=== PATIENT | female | born 1990 | race Caucasian/White ===

== ENCOUNTER 2023-11-02 20:53 | Emergency (ER) | payer OTHER, SELFPAY ==
[2023-11-02 21:01] VITALS: BP 148/93; PULSE 87; RESP 18; TEMP 37.9; O2SAT 99; BMI 31.6
--- NOTE | 2023-11-02 21:47 | ED_ITS ---
HPI - Dental/Oral General Chief complaint: Dental/Oral Stated complaint: Dental Pain, Neck Pain Time Seen by Provider: 11/02/23 21:43 Source: patient Mode of arrival: walk-in Limitations: no limitations History of Present Illness HPI Narrative: patient presents complaining of dental pain. Started this evening. complain of increase pressure. No problem swallowing. No throat pain. Does have pain left side of her neck. No fever, chills or nausea Related Data Home Medications Medication Instructions Recorded Confirmed No Known Home Medications 11/02/23 11/02/23 Allergies Allergy/AdvReac Type Severity Reaction Status Date / Time No Known Drug Allergies Allergy Verified 11/02/23 21:05 Review of Systems ROS Status of ROS 10 or more systems reviewed and unremark able except as noted in history and below [facility] Social History Smoking status: Current every day smoker Exam Constitutional Vital Signs, click to edit/add: Last Vital Signs Temp 100.2 F 11/02/23 21:01 Pulse 80 11/02/23 22:29 Resp 18 11/02/23 21:01 BP 119/94 H 11/02/23 22:29 Pulse Ox 99 11/02/23 22:29 O2 Del Method Room Air 11/02/23 21:01 Common normals: no apparent distress, average body habitus, oriented x3, no limitations, healthy appearing and alert [facility] Common normals: normocephalic and head/scalp atraumatic Other: dental abscess left upper molar. has swelling from tooth into the mouth. Has tenderness left anterior cervical chain but no obvious enlarged nodes. Respiratory Common normals: normal respiratory effort and no retractions Cardio Common normals: regular rate, regular rhythm, S1 normal heart sound and S2 normal heart sound Extremity Common normals: normal to inspection and full ROM Neuro Common normals: oriented x3, CN's II-XII intact bilaterally, moves all extremities and no focal motor deficits Psych Appearance: grossly normal Course Vital Signs Vital signs: Vital Signs Temperature 100.2 F 11/02/23 21:01 Pulse Rate 87 11/02/23 21:01 Respiratory Rate 18 11/02/23 21:01 Blood Pressure 148/93 H 11/02/23 21:01 Pulse Oximetry 99 11/02/23 21:01 Oxygen Delivery Method Room Air 11/02/23 21:01 Temperature 100.2 F 11/02/23 21:01 Pulse Rate 80 11/02/23 22:29 Respiratory Rate 18 11/02/23 21:01 Blood Pressure 119/94 H 11/02/23 22:29 Pulse Oximetry 99 11/02/23 22:29 Oxygen Delivery Method Room Air 11/02/23 21:01 MDM - Dental/Oral MDM Narrative Medical decision making narrative: presents with dental abscess. CT neck with localization of infection . No drainable fluid. patient treated with IV clindamycin, toradol and solumedrol. Pain improved prior to discharge. discharged home with clindamycin Lab Data Labs: Lab Results 11/02/23 Range/Units 22:13 WBC 7.8 (4.0-11.0) 10^3/uL RBC 4.49 (4.20-5.40) 10^6/uL Hgb 13.0 (12.0-16.0) g/dL Hct 39.3 (36.0-48.0) % MCV 87.5 (81.0-99.0) fL MCH 29.0 (26.7-34.0) pg MCHC 33.1 (29.9-35.2) g/dL RDW 12.7 (11.0-15.0) % Plt Count 243 (150-450) 10^3/uL MPV 11.5 (9.5-13.5) fL Neut % (Auto) 65.3 (43.0-75.0) % Lymph % (Auto) 20.6 (20.5-60.0) % [place] % (Auto) 8.8 (1.7-12.0) % Eos % (Auto) 4.4 (0.9-7.0) % Baso % (Auto) 0.5 (0.2-2.0) % Neut # (Auto) 5.1 (1.4-6.5) 10^3/uL Lymph # (Auto) 1.6 (1.2-3.8) 10^3/uL [place] # (Auto) 0.7 (0.3-0.8) 10^3/uL Eos # (Auto) 0.3 (0.0-0.7) 10^3/uL Baso # (Auto) 0.0 (0.0-0.1) 10^3/uL Abs Immat Gran (auto) 0.03 (0.00-0.03) 10^3/uL Imm/Tot Granulo (auto) 0.4 (0.0-0.5) % Sodium 137 (136-145) mmol/L Potassium 3.3 L (3.5-5.1) mmol/L Chloride 102 (98-107) mmol/L Carbon Dioxide 25.4 (21.0-32.0) mmol/L Anion Gap 12.9 BUN 12.0 (7.0-18.0) mg/dL Creatinine 0.71 (0.55-1.02) mg/dL Est GFR ( Amer) >60 (>=60) Est GFR (Non-Af Amer) >60 (>=60) BUN/Creatinine Ratio 16.9 Glucose 89 (74-106) mg/dL Calcium 8.9 (8.5-10.1) mg/dL C-Reactive Protein 1.67 H (<=0.50) mg/dL Imaging Data Chest x-ray: Radiologist's impression: ITS Impressions Soft Tissue Neck CT 11/02/23 21:50 IMPRESSION: 1. Findings consistent with dental disease with loss of that tooth crowns associated with extensive dental caries formation and periapical lucency involving the first left maxillary molar. No drainable fluid collection is seen along the buccal or lingual margins. Electronically authenticated by: THEODORE BUTLER Date: 11/02/2023 23:09 Discharge Plan Discharge Chief Complaint: Dental/Oral Clinical Impression: Dental abscess Patient Disposition: Home, Self-Care Prescriptions / Home Meds: No Action No Known Home Medications Instructions: Dental Abscess (ED) Additional Instructions: follow up with your dentist later this week Stand Alone Forms: Portal Instructions Referrals: KARLA BREWSTER [Primary Care Provider] - 1 week
--- NOTE | 2023-11-02 21:50 | CT_ITS ---
The [address] [address] Patient Name: PAOLO HEREDIA MRN: [id number] date: 1990 Sex: F Assigned Patient Location: ER Current Patient Location: Accession/Order Number: [id number] Exam Date: 11/02/2023 22:35 Report Date: 11/02/2023 23:09 At the request of: JAIRON SKY Procedure: CT soft tissue neck w con INDICATION: 33 years old; Female. Symptom/Location/Duration: Evaluate for dental abscess. TECHNIQUE: CT examination of the neck. Axial, coronal and sagittal reformats were reviewed. 100 mL of Omnipaque 300 was utilized without complication. Ionizing radiation dose reduced via iterative reconstruction/FBP blend and body size kV/mA adjustment. COMPARISON: None FINDINGS: AIRWAY: PARANASAL SINUSES AND MASTOID AIR CELLS: There is mucosal thickening within ethmoid sinuses on the right. No fluid levels. Thickening is present in the based the maxillary sinus on the left. Mastoids and middle ears are clear. NASOPHARYNX: Normal in appearance. OROPHARYNX: Normal in appearance. ORAL CAVITY: Normal in appearance. HYPOPHARYNX: Normal in appearance. LARYNX: Normal in appearance. TRACHEA: Patent. SOFT TISSUES: PARAPHARYNGEAL SPACE: Normal and symmetric. CAROTID SPACE: Normal in appearance. DOPE HEATER SPACE: Normal in appearance. RETROPHARYNGEAL SPACE: Normal in appearance. LYMPH NODES: No pathologic adenopathy is seen. No matted or necrotic lymph nodes are present. GLANDS: PAROTID: Normal in appearance. SUBMANDIBULAR: Normal in appearance. THYROID: No thyroid nodule or adenopathy. MISCELLANEOUS: LUNG APICES: Clear. BONY CERVICAL SPINE: Normal. VISUALIZED BRAIN: A portion of the brain is included in the examination. No areas of pathologic enhancement are seen. This study cannot exclude all brain pathology. VISUALIZED GLOBES: Only a portion of the orbits is included. No gross evidence of orbital mass. DENTITION: No drainable fluid collections are appreciated. There is dental disease with loss of the normal tooth crowns associated with extensive dental caries involving the left maxillary first molar. OTHER: None. CT/CT soft tissue neck w con IMPRESSION: 1. Findings consistent with dental disease with loss of that tooth crowns associated with extensive dental caries formation and periapical lucency involving the first left maxillary molar. No drainable fluid collection is seen along the buccal or lingual margins. Electronically authenticated by: THEODORE BUTLER Date: 11/02/2023 23:09
[2023-11-02] MEDS: CLINDAMYCIN PHOSPHATE/D5W 900 MG/50 ML PIGGYBACK 100 MG IV (22:25)
[2023-11-02] MEDS: KETOROLAC TROMETHAMINE 30 MG/ML VIAL IVP (22:26)
[2023-11-02] MEDS: METHYLPREDNISOLONE SOD SUCC PF 125 MG/2 ML VIAL IVP (22:26)
[2023-11-02 22:29] VITALS: BP 119/94; PULSE 80; O2SAT 99
[2023-11-02 22:49] LABS: Basophils Percent Auto 0.5 % (0.2-2.0); Eosinophils Absolute Auto 0.3 10^3/uL (0.0-0.7); Eosinophils Percent Auto 4.4 % (0.9-7.0); Hematocrit 39.3 % (36.0-48.0); Immature Granulocytes Abs Auto 0.03 10^3/uL (0.00-0.03); Immature Granulocytes Pct Auto 0.4 % (0.0-0.5); Lymphocytes Absolute Auto 1.6 10^3/uL (1.2-3.8); Lymphocytes Percent Auto 20.6 % (20.5-60.0); Mean Corpuscular HGB Conc 33.1 g/dL (29.9-35.2); Mean Corpuscular Volume 87.5 fL (81.0-99.0); Mean Platelet Volume 11.5 fL (9.5-13.5); Monocytes Absolute Auto 0.7 10^3/uL (0.3-0.8); Monocytes Percent Auto 8.8 % (1.7-12.0); Neutrophils Absolute Auto 5.1 10^3/uL (1.4-6.5); Neutrophils Percent Auto 65.3 % (43.0-75.0); Platelet Count 243 10^3/uL (150-450); Red Blood Count 4.49 10^6/uL (4.20-5.40); Red Cell Distribution Width 12.7 % (11.0-15.0); White Blood Count 7.8 10^3/uL (4.0-11.0)
[2023-11-02 23:00] LABS: Anion Gap 12.9; BUN Creatinine Ratio 16.9; Calcium 8.9 mg/dL (8.5-10.1); Carbon Dioxide 25.4 mmol/L (21.0-32.0); Chloride 102 mmol/L (98-107); Estimated GFR (African America >60 (>=60); Estimated GFR (Non-African Ame >60 (>=60); Glucose 89 mg/dL (74-106); Potassium 3.3 mmol/L (3.5-5.1); Sodium 137 mmol/L (136-145)
[2023-11-02 23:01] LABS: C Reactive Protein 1.67 mg/dL (<=0.50)
[2023-11-02 23:49] VITALS: BP 145/69; PULSE 78; O2SAT 98
== END 2023-11-02 23:43 | disposition home or self-care (01) ==
PROVIDERS: Emergency Provider Internal Medicine; PCP Family Medicine
DX: K04.7 Periapical abscess without sinus (principal); F17.210 Nicotine dependence, cigarettes, uncomplicated
CPT/HCPCS: 36415; 70491; 80048; 85025; 86140; 96365; 96375; 99285; J0736; J1885; J2930; Q9967

== ENCOUNTER 2025-01-07 19:27 | Emergency (ER) | payer OTHER, SELFPAY ==
[2025-01-07] VITALS (8 sets, daily range): BP systolic 122–133; BP diastolic 71–86; PULSE 71–78; TEMP 36.7; O2SAT 96–99; BMI 34.4
--- OUTSIDE RECORDS SUMMARY | 2025-01-07 19:34 | XMS_ITS | CCD ---
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 preoperatively The patient is at or returning to normothermia at the conclusion of the immediate postoperative period The patient's respiratory function is consistent with or improved from baseline levels established preoperatively The patient's cardiovascular status is consistent with or improved from baseline levels established preoperatively The patient's neurological status is consistent with or improved from baseline levels established preoperatively The patient demonstrates and/or reports adequate pain control throughout the perioperative period The patient received appropriate medication(s), safely administered during the perioperative period Finalized By: Francisca García RN Document Signatures Signed By: Francisca García RN 07/25/20 17:42 Normal [facility] Main OR Preoperative Recordo n 07-25-2020 Main OR Preoperative Record PreOp Document Type FT Summary Primary Physician: Nikos Martines DO Finalized Date/Time: 07/25/20 13:37:30 Pt. Name: ARELI FUENTES DALE /Sex: 1990 Female Med Rec #: [id number] Physician: Nikos Martines DO Financial #: [id number] Pt. Type: A Room/Bed: [place] [address] Admit/Disch: 07/25/20 10:21:33 - Institution: Case Times PreOp FT Pre-Care Text: Verifies consent for planned procedure, identifies individual values and wishes concerning care, includes family members in perioperative teaching Entry 1 Patient Times. In Pre Surgery 07/25/20 10:25:00 Out Pre Surgery 07/25/20 12:55:00 Outcomes Met? Yes Last Modified By: Kimberly Negro RN 07/25/20 13:37:28 Post-Care Text: The patient participates in decisions affecting his or her perioperative plan of care Finalized By: Kimberly Negro RN Document Signatures Signed By: Kimberly Negro RN 07/25/20 13:37 Normal [facility] Monitor Recordon 07-25-2020 Monitor Record [id number]# 1.00CD:127 Normal [facility] Monitor Record [id number]# 1.00CD:127 Normal [facility] Outpatient Surgery Discharge Instructionon 07-25-2020 Outpatient Surgery Discharge Instruction [place] [id number] Patient Discharge Instructions PERSON INFORMATION Name: ARELI FUENTES Date of : 1990 Current Date: 07/25/2020 15:45:10 PHYSICIANS Admitting Physician: Nikos Martines DO Discharge Diagnosis: ARELI FUENTES has been given the following list of follow-up instructions, prescriptions, and patient education materials: IF UNABLE TO CONTACT YOUR PHYSICIAN AND YOU FEEL IT IS AN EMERGENCY, GO TO THE NEAREST EMERGENCY ROOM OR CALL 911 I, ARELI FUENTES, have received the attached patient education materials/instruction s and have verbalized understanding: May we do a follow up call? Yes No I was present when discharge instructions were given Patient Signature Date Clinican/Nurse Signature Date Follow up: Pharmacy Information: Thank you for choosing [facility] HERE ARE THE MEDICATION CHANGES THAT OCCURRED DURING YOUR HOSPITAL STAY New Medications [id number], [address] [place], [place] [id number], [phone] acetaminophen-oxycodo ne (Percocet 325 mg-5 mg Tab) 1-2 orally every 4-6hrs as needed for pain Dx: S42.021D Duration: 7 days; as needed as needed for pain. Refills: 0., 1-2 orally every 4-6hrs as needed for pain Medications to Continue with No Changes Other Medications melatonin 5 Milligram By Mouth once a day (at bedtime). PATIENT EDUCATION INFORMATION Instructions: [place] [place] [facility] DISCHARGE INSTRUCTIONS: SHOULDER MEDICATIONS: You will be given a prescription for pain medication. This should be taken with food, as needed. This may cause stomach upset, dizziness, and possible constipation. Please notify the office if you have any medication allergies to this type of medication or if any problems develop with the medication. You may begin using Tylenol or apqa-mqb-ojcyonf Ibuprofen or Motrin for pain should you experience lesser pain. DRESSING CHANGES: You should continue the daily dressing changes as instructed by nursing staff, with application of Betadine liquid and then a dry sterile dressing once or twice daily. Any increase in pain, temperature over 101 degrees, redness, or drainage should be reported to the office prior to your first office visit. ACTIVITY: You may continue to progress activity as comfortably tolerated with your opposite arm. You must wear either the cryo cuff or shoulder immobilizer at all times, but you may begin to use your elbow, wrist, and hand as directed in physical therapy. ANESTHESIA PRECAUTIONS: You should not operate a vehicle, automobile, bicycle or motorcycle, machinery, or power tools; make any important decisions or drink alcohol for 24 hours. It may be beneficial to have a responsible adult remain with your for your first 24 hours after surgery. You may be drowsy and light-headed. DRIVING: Do NOT Drive. PROBLEMS: You should notify the office for any persistent or heavy bleeding, temperature above 101, redness, swelling, or drainage from the operative site, severe pain at the operative site, or the development of persistent vomiting. Nikos Martines, DO [facility] [address] [place], [place] [id number] [phone] Reviewed: 01-22 Revised: 10/28 Normal [facility] Patient Education - Texton 1 Patient Education - Text [place] [place] [facility] DISCHARGE INSTRUCTIONS: SHOULDER MEDICATIONS: You will be given a prescription for pain medication. This should be taken with food, as needed. This may cause stomach upset, dizziness, and possible constipation. Please notify the office if you have any medication allergies to this type of medication or if any problems develop with the medication. You may begin using Tylenol or cjah-xpz-zoglbet Ibuprofen or Motrin for pain should you experience lesser pain. DRESSING CHANGES: You should continue the daily dressing changes as instructed by nursing staff, with application of Betadine liquid and then a dry sterile dressing once or twice daily. Any increase in pain, temperature over 101 degrees, redness, or drainage should be reported to the office prior to your first office visit. ACTIVITY: You may continue to progress activity as comfortably tolerated with your opposite arm. You must wear either the cryo cuff or shoulder immobilizer at all times, but you may begin to use your elbow, wrist, and hand as directed in physical therapy. ANESTHESIA PRECAUTIONS: You should not operate a vehicle, automobile, bicycle or motorcycle, machinery, or power tools; make any important decisions or drink alcohol for 24 hours. It may be beneficial to have a responsible adult remain with your for your first 24 hours after surgery. You may be drowsy and light-headed. DRIVING: Do NOT Drive. PROBLEMS: You should notify the office for any persistent or heavy bleeding, temperature above 101, redness, swelling, or drainage from the operative site, severe pain at the operative site, or the development of persistent vomiting. Nikos Martines DO [facility] [address] [place] [id number] [phone] Reviewed: 01-22 Revised: 10/28 [facility] Progress Note-Physicianon Progress Note-Physician Patient: ARELI FUENTES Age: 30 years Sex: Female : 1990 Associated Diagnoses: None Author: Justin Burns Jr., DO Postoperative Information Post Operative Note: Post Anesthesia Care Unit. Anesthetic utilized: General. Health Status Allergies: Allergic Reactions (Selected) No Known Allergies Problem list: All Problems Smoker / SNOMED CT 873078481 / Confirmed Added secondary to documentation in Social History. Closed dislocation of right clavicle / SNOMED CT 1293089884 / Confirmed Resolved: / SNOMED CT 473050102 Resolved: / SNOMED CT 467027324 Resolved: / SNOMED CT 421747588 Resolved: / SNOMED CT 628173286 Physical Examination Vital Signs 07/25/2020 15:35 EDT Temperature Oral 36.5 DegC Heart Rate Monitored 66 bpm Respiratory Rate 18 br/min Systolic Blood Pressure 122 mmHg Diastolic Blood Pressure 79 mmHg Blood Pressure Location Left arm Mean Arterial Pressure, Monitered 93 mmHg SpO2 100 % 07/25/2020 15:25 EDT Temperature Temporal Artery 36.2 DegC LOW Heart Rate Monitored 63 bpm Respiratory Rate Monitored 14 br/min Systolic Blood Pressure 117 mmHg Diastolic Blood Pressure 75 mmHg SpO2 99 % 07/25/2020 15:10 EDT Heart Rate Monitored 59 bpm LOW Respiratory Rate Monitored 16 br/min Systolic Blood Pressure 128 mmHg Diastolic Blood Pressure 65 mmHg SpO2 100 % 07/25/2020 14:55 EDT Heart Rate Monitored 68 bpm Respiratory Rate Monitored 11 br/min Systolic Blood Pressure 120 mmHg Diastolic Blood Pressure 78 mmHg SpO2 98 % 07/25/2020 14:40 EDT Heart Rate Monitored 84 bpm Respiratory Rate Monitored 18 br/min Systolic Blood Pressure 122 mmHg Diastolic Blood Pressure 78 mmHg SpO2 93 % 07/25/2020 14:25 EDT Heart Rate Monitored 96 bpm Respiratory Rate Monitored 18 br/min Systolic Blood Pressure 121 mmHg Diastolic Blood Pressure 87 mmHg SpO2 98 % 07/25/2020 14:20 EDT Heart Rate Monitored 78 bpm Respiratory Rate Monitored 18 br/min Systolic Blood Pressure 107 mmHg Diastolic Blood Pressure 69 mmHg SpO2 100 % 07/25/2020 14:14 EDT Temperature Temporal Artery 36.3 DegC Heart Rate Monitored 84 bpm Respiratory Rate 20 br/min Systolic Blood Pressure 111 mmHg Diastolic Blood Pressure 72 mmHg SpO2 100 % Pain assessment: Pain Assessment 07/25/2020 15:35 EDT Preliminary Pain Scale 3 07/25/2020 15:35 EDT Primary Pain Location Other: clavicle Primary Pain Laterality Right Primary Pain Quality Burning Patient Preferred Pain Tool Numeric rating Numeric Pain Scale 3 07/25/2020 15:25 EDT Primary Pain Location Other: clavicle Primary Pain Laterality Right Primary Pain Quality Burning Patient Preferred Pain Tool Numeric rating Numeric Pain Scale 4 Numeric Pain Score 4 07/25/2020 15:03 EDT Primary Pain Location Shoulder Primary Pain Laterality Right Primary Pain Quality Burning Patient Preferred Pain Tool Numeric rating Numeric Pain Scale 5 = Moderate pain Numeric Pain Score 5 07/25/2020 14:48 EDT Primary Pain Location Shoulder Primary Pain Quality Burning Patient Preferred Pain Tool Numeric rating Numeric Pain Scale 7 Numeric Pain Score 7 07/25/2020 14:42 EDT Primary Pain Location Shoulder Primary Pain Laterality Right Primary Pain Quality Burning Patient Preferred Pain Tool Numeric rating Numeric Pain Scale 8 Numeric Pain Score 8 . General: Alert and oriented, No acute distress, No nausea. Adequate hydration.. Respiratory: Adequate air exchange.. Cardiovascular: stable. Neurologic: Normal sensory. Review / Management Condition: Stable. Assessment Anesthetic outcome No anesthetic complications noted. Plan Transfer/ Discharge: Condition stable. Normal [facility] Comment on above: Result Comment: Elec tronically Signed By: Justin Burns Jr., DO\.br\Date and Time Signed: 07/25/20 15:49 EDT Progress Note-Physician Patient: ARELI FUENTES DALE MRN: [id number] Age: 30 years Sex: Female : 1990 Associated Diagnoses: None Author: Nikos Martines DO Postoperative Information Procedure: R clavicle ORIF Preoperative Diagnosis: R clavicle fx. Postoperative Diagnosis: same. Performed by: nella. Brass Cutter: sandra. Specimens Removed: none. Estimated Blood Loss: 30 ml. Complications: None. Normal [facility] Comment on above: Result Comment: Elec tronically Signed By: Nikos Martines DO\.br\Date and Time Signed: 07/25/20 14:03 EDT Progress Note-Physician Patient: ARELI FUENTES DALE MRN: [id number] Age: 30 years Sex: Female : 1990 Associated Diagnoses: None Author: Justin Burns Jr., DO Preoperative Information Time patient last ate or drank:=== (NPO since midnight) Anesthesia history: Patient History: No prior problems with anesthesia.. Re-eval prior to induction: Inital eval reviewed: No significant interval change, Surgical H&P documented and on chart. Surgical consent signed and on chart.. Anesthesia results Review of Systems Cardiovascular: Negative except as documented in history of present illness. Respiratory: Negative. Neurologic: Negative. Health Status Allergies: Allergic Reactions (Selected) No Known Allergies, Allergies (1) Active Reaction No Known Allergies None Documented Current medications: (Selected) Inpatient Medications Ordered HYDROmorphone 1 mg/mL injectable solution: 0.4 mg = 0.4 mL, Injection, IV Push, q4min PRN Pain for 5 dose(s), Stop date Limited # of times, Routine, Start date 07/25/20 11:34:00 EDT Lactated Ringers IV Rosenda 1000 mL 1,000 mL: 1,000 mL, IV, 100 mL/hr, Routine, Start date 07/25/20 11:34:00 EDT, 10 hour(s), Total volume (mL): 1,000, 89.6 kg, 2.09, m2 Lactated Ringers IV Rosenda 1000 mL 1,000 mL: 1,000 mL, IV, 150 mL/hr, Routine, Start date 07/25/20 10:00:00 EDT, 6.7 hour(s), Total volume (mL): 1,000, 89.6 kg, 2.09, m2 [place] 5/325 Tab: 1 tab(s), Tab, Oral, q4hr PRN Pain 4-7 for 5 day(s), Stop date 07/30/20 12:29:00 EDT, Routine, Start date 07/25/20 12:30:00 EDT Phenergan 25 mg/mL Injection: 12.5 mg = 0.5 mL, Injection, IV Push, q2min PRN Other (see comment) for 2 dose(s), Stop date Limited # of times, Routine, Start date 07/25/20 11:34:00 EDT Zofran 4 mg/2 mL Injection: 4 mg = 2 mL, Injection, IV Push, q4hr PRN Nausea/Vomiting, Routine, Start date 07/25/20 12:30:00 EDT cefazolin additive + Premix Dextrose 5% Diluent 50 mL: 2 gram = 50 mL, IV Piggyback, PREOP, Routine, Start date 07/25/20 10:00:00 EDT, 100 mL/hr, Infuse over 30 minute(s) Documented Medications Documented melatonin: 5 mg, Oral, Once a day (at bedtime), Sleep Histories Past Medical History: Resolved ([id number]): Onset on 02/07/2015 at 24 years. Resolved. (859656352): Resolved on 04/11/2010 at 19 years. (524821542): Resolved on 11/22/2012 at 22 years. (197957532): Resolved in 2010 at 20 years. Family History: No family history items have been selected or recorded. Procedure history: History of tubal ligation.. (5393536636). Social History Social & Psychosocial Habits Alcohol 02/07/2015 Risk Assessment: Denies Alcohol Use 01/24/2018 Use: Current Type: Beer, Liquor Frequency: 1-2 times per year 05/30/2019 Use: Current Frequency: 1-2 times per year Comment: not serious a couple times a year - 05/30/2019 11:26 - Radha Carlson RN Substance Abuse 02/07/2015 Risk Assessment: Denies Substance Abuse Comment: denies current use - 01/24/2018 12:27 - Racquel Izaguirre RN Comment: denies - 05/30/2019 11:26 - Radha Carlson RN Tobacco 07/21/2020 Tobacco Use: 4 or less cigarettes(less Smokeless tobacco use: Never Type: Cigarettes Previous treatment: None Comment: only 1 year smoking had stopped. - 07/21/2020 15:35 - Norah Middleton RN 07/21/2020 Risk Assessment: Low Risk . Physical Examination Airway: Mallampati classification: II (soft palate, fauces, uvula visible). Respiratory: Lungs are clear to auscultation. Cardiovascular: Regular rhythm. Review / Management Results review: Lab results 07/21/2020 15:51 EDT WBC 5.7 E9/L RBC 4.8 E12/L Hgb 13.9 gm/dL Hct 41.1 % MCV 85.8 fL MCH 29.0 pg MCHC 33.9 gm/dL RDW 13.8 % Platelet 292.0 E9/L MPV 9.9 fL BUN 10 mg/dL Creatinine 0.7 mg/dL eGFR >60 mL/min/1.73 m2 eGFR AA >60 mL/min/1.73 m2 Sodium Lvl 139 mmol/L Potassium Lvl 3.4 mmol/L LOW Chloride 107 mmol/L CO2 25 mmol/L AGAP 10 mEq/L 07/18/2020 11:58 EDT SARS-CoV-2, UNRULY Not Detected . Plan [place] [employer]esthesi[employer] (ASA) physical status classification: Class II. Anesthetic Preoperative Plan Anesthesia: General. . Anesthetic plan, risks, benefits, and alternatives discussed with the patient and/or family. Patient verbalized understanding. Adverse reactions, complications, and alternatives discujssed. Consent signed and on chart.. [facility] Comment on above: Result Comment: Elec tronically Signed By: Justin Burns Jr., DO.juan carlos\Date and Time Signed: 07/25/20 11:36 EDT Consent for Procedure/Surger yon 07-24-2020 Consent for Procedure/Surgery [id number]# 1.00CD:127 [facility] Coding Summary.on 07-23-2020 Coding Summary. CODING DATE: 07/23/2020 [facility] STATUS: Home (Routine DC) PAYOR: Medicaid EAPG DESCRIPTION 0425 LEVEL I OTHER MISCELLANEOUS ANCILLARY PROCEDURES 0403 ORGAN OR DISEASE ORIENTED PANELS 0402 BASIC CHEMISTRY TESTS 0408 LEVEL I HEMATOLOGY TESTS ADMIT DX: REASON FOR VISIT DX: Z01.812 Encounter for preprocedural laboratory examination FINAL DX: PRINCIPAL: Z01.812 Encounter for preprocedural laboratory examination SECONDARY: PYMT PROC EAPG STAT DESCRIPTION DOCTOR NAME DATE NOTE: The code number assigned matches the documented diagnosis and / or procedure in the patient's chart. However, the narrative phrase printed from the coding software may appear abbreviated, or result in slightly different terminology. Coded By: Cintia Preciado CphT Date Saved: 07/23/2020 09:34 pm [facility] BUNon 07-21-2020 Urea nitrogen [Mass/Vol] 10 mg/dL Normal 5-21 [facility] Comment on above: Performed By: #### 2 038250, [id number], 0059658, 8860599, 8683098 ####[facility] [address] [place] [address] CBC w/Indiceson 07-21-2020 Erythrocyte distribution width (RBC) [Ratio] 13.8 % Normal 10.9-14.2 [facility] Comment on above: Performed By: #### 2 436538, 33065600, 2788222, 1375206, 0493286 ####[facility] [address] [place] [address] Hematocrit (Bld) [Volume fraction] 41.1 % Normal 34.0-46.0 [facility] Comment on above: Performed By: #### 2 507341, 27693710, 1134641, 7974339, 2202889 ####[facility] [address] [place] [address] Hemoglobin (Bld) [Mass/Vol] 13.9 g/dL Normal 12.0-16.0 [facility] Comment on above: Performed By: #### 2 732322, 59197952, 5736551, 5628101, 4901396 ####[facility] [address] [place] [address] MCH (RBC) [Entitic mass] 29.0 pg Normal 27.0-34.0 [facility] Comment on above: Performed By: #### 2 823684, 30855556, 0777644, 1436724, 3636368 ####[facility] [address] [place] [address] MCHC (RBC) [Mass/Vol] 33.9 g/dL Normal 31.4-36.0 [facility] Comment on above: Performed By: #### 2 608067, 84438120, 5382398, 8620466, 2781548 ####[facility] [address] [place] [address] MCV (RBC) [Entitic vol] 85.8 fL Normal 80.0-100.0 [facility] Comment on above: Performed By: #### 2 214644, 63668804, 6301576, 2080697, 0804847 ####[facility] [address] [place] [address] Platelet mean volume (Bld) [Entitic vol] 9.9 fL Normal 6.4-10.8 [facility] Comment on above: Performed By: #### 2 051819, 04978950, 1336054, 4501464, 9571852 ####[facility] [address] [place] [address] Platelets (Bld) [#/Vol] 292.0 E9/L Normal 150.0-500.0 [facility] Comment on above: Performed By: #### 2 677480, 77032245, 2518962, 8359552, 6455892 ####[facility] [address] [place] [address] RBC (Bld) [#/Vol] 4.8 E12/L Normal 4.3-5.9 [facility] Comment on above: Performed By: #### 2 361429, 79092032, 3361407, 7811922, 9441309 ####[facility] [address] [place] [address] WBC corrected for nucl RBC Auto (Bld) [#/Vol] 5.7 E9/L Normal 4.0-11.0 [facility] Comment on above: Performed By: #### 2 904332, 24759612, 3954803, 6842564, 6185380 ####[facility] [address] [place] [address] Consent for Treatmenton Consent for Treatment [id number] .00CD:127 Normal [facility] Creatinineon 07-21-2020 Creatinine [Mass/Vol] 0.7 mg/dL Normal 0.5-1.3 [facility] Comment on above: Performed By: #### 2 218796, 28467187, 7735594, 8586535, 2026958 ####[facility] [address] [place] [address] Lyteson 07-21-2020 Anion gap [Moles/Vol] 10 mmol/L Normal 6-16 [facility] Comment on above: Performed By: #### 2 649397, 91276334, 5568173, 9401902, 8875774 ####[facility] [address] [place] [address] Chloride [Moles/Vol] 107 mmol/L Normal 101-111 [facility] Comment on above: Performed By: #### 2 070287, 22180054, 5888332, 2761261, 1231728 ####[facility] [address] [place] [address] CO2 [Moles/Vol] 25 mmol/L Normal 21-31 [facility] Comment on above: Performed By: #### 2 186281, 44171008, 6281288, 1143851, 6235867 ####[facility] [address] [place] [address] Potassium [Moles/Vol] 3.4 mmol/L Low 3.5-5.3 [facility] Comment on above: Performed By: #### 2 012355, 28395405, 2591122, 1143079, 4100500 ####[facility] [address] [place] [address] Sodium [Moles/Vol] 139 mmol/L Normal 135-145 [facility] Comment on above: Performed By: #### 2 682637, 35945018, 0115635, 4961238, 6963051 ####[facility] [address] [place] [address] eGFRon 07-21-2020 GFR/1.73 sq M.predicted among blacks MDRD (S/P/Bld) [Vol rate/Area] mL/min/{1.73_m2} Normal >=59 [facility] Comment on above: Order Comment: Order added by Discern Expert. Result Comment: eGFR is race adjusted. AA=. Performed By: #### 2 463026, 13298902, 6042258, 2950175, 1520694 ####[facility] [address] [place] [address] GFR/1.73 sq M.predicted among non-blacks MDRD (S/P/Bld) [Vol rate/Area] mL/min/{1.73_m2} Normal >=59 [facility] Comment on above: Order Comment: Order added by Discern Expert. Result Comment: Hand I Thermal Cutter misti kidney disease could be indicated at eGFR's of less than 60 mL/min/1.73m2. Kidney failure is indicated at less than 15 mL/min/1.73m2. Performed By: #### 2 006316, 78639973, 3484911, 5048471, 4878283 ####[facility] [address] [place] [address] Priority Order-Kimani 2019 Priority Order-STAT Comment Invalid Interpretation Code [facility] Comment on above: Result Comment: Rece ived Performed at: [facility] [address] [facility] [place] [id number] MD Kelsy Dudley Performed By: #### 2 [id number], SARS-CoV-2, UNRULY ####[facility] [address] [place] [address] SARS-CoV-2, NAAon 07-19-2020 SARS-CoV-2 (COVID-19) RNA UNRULY+probe Ql (Resp) Not detected Invalid Interpretation Code Not Detected [facility] Comment on above: Result Comment: This nucleic acid amplification test was developed and its performance characteristics determined by [employer]. Nucleic acid amplification tests include PCR and TMA. This test has not been FDA cleared or approved. This test has been authorized by FDA under an Emergency Use Authorization (EUA). This test is only authorized for the duration of time the declaration that circumstances exist justifying the authorization of the emergency use of in vitro diagnostic tests for detection of SARS-CoV-2 virus and/or diagnosis of COVID-19 infection under section 564(b)(1) of the Act, 21 U.S.C. 360bbb-3(b) (1), unless the authorization is terminated or revoked sooner. When diagnostic testing is negative, the possibility of a false negative result should be considered in the context of a patient's recent exposures and the presence of clinical signs and symptoms consistent with COVID-19. An individual without symptoms of COVID-19 and who is not shedding SARS-CoV-2 virus would expect to have a negative (not detected) result in this assay. Performed at: [facility] [address] [facility] [place] [id number] MD Kelsy Dudley Performed By: #### 2 [id number], SARS-CoV-2, UNRULY #### [facility] [address] [place] [address] Physician Orderon 07-18-2020 Physician Order [id number]#1. 00CD:127 Normal [facility] Consenton 06-17-2020 Consent [id number]# 1.00CD:127 Normal [facility] Registrationon 06-17-2020 Registration [id number]# 1.00CD:127 [facility] Vital Signs Date Time Vital Sign Value Performing Clinician Facility 12-03-2024 09:33-0500 Body height 176.6 cm [employer] [facility] 12-03-2024 09:33-0500 Body mass index (BMI) [Ratio] 36.07 kg/m2 [employer] [facility] 12-03-2024 09:33-0500 Body temperature 97.81 [degF] [employer] Phone[facility] 12-03-2024 09:33-0500 Body weight 112.49 kg [employer] Work Phone: [facility] 12-03-2024 09:33-0500 Diastolic blood pressure 70 mm[Hg] Florentino Furlong DO Work Phone: [facility] 12-03-2024 09:33-0500 Heart rate 78 /min Florentino Furlong DO Work Phone: [facility] 12-03-2024 09:33-0500 Respiratory rate 18 /min Florentino Furlong DO Work Phone: [facility] 12-03-2024 09:33-0500 SaO2% (BldA) [Mass fraction] 99 % Florentino Furlong DO Work Phone: [facility] 12-03-2024 09:33-0500 Systolic blood pressure 126 mm[Hg] Florentino Furlong DO Work Phone: [facility] 11-11-2024 14:00-0500 Body height 175.[address] [facility] 11-11-2024 14:00-0500 Body mass index (BMI) [Ratio] 37 kg/m2 [facility] 11-11-2024 14:00-0500 Body temperature 99.5 [degF] [facility] 11-11-2024 14:00-0500 Body weight 113.[address] [facility] 11-11-2024 14:00-0500 Diastolic blood pressure 90 mm[Hg] [facility] 11-11-2024 14:00-0500 Heart rate 105 /min [facility] 11-11-2024 14:00-0500 Respiratory rate 16 /min [facility] 11-11-2024 14:00-0500 SaO2% (BldA) [Mass fraction] 98 % [facility] 11-11-2024 14:00-0500 Systolic blood pressure 142 mm[Hg] [facility] 02-02-2024 15:59-0400 Body height 175.[address] [facility] 02-02-2024 15:59-0400 Body mass index (BMI) [Ratio] 37 kg/m2 [facility] 02-02-2024 15:59-0400 Body temperature 98.4 [degF] [facility] 02-02-2024 15:59-0400 Body weight 113.[address] [facility] 02-02-2024 15:59-0400 Heart rate 97 /min [facility] 02-02-2024 15:59-0400 Respiratory rate 18 /min [facility] 02-02-2024 15:59-0400 SaO2% (BldA) [Mass fraction] 99 % [facility] 09-27-2023 10:45-0500 Body height 170.18 cm Deepti Diann Other [facility] Other 09-27-2023 10:45-0500 Body mass index (BMI) [Ratio] 38.99 kg/m2 Deepti Diann Other [facility] Other 09-27-2023 10:45-0500 Body temperature 98.5 [degF] Deepti Enriquemond Other [facility] Other 09-27-2023 10:45-0500 Body weight 112.95 kg Deepti Enriquemond Other [facility] Other 09-27-2023 10:45-0500 Diastolic blood pressure 69 mm[Hg] Deepti Diann Other [facility] Other 09-27-2023 10:45-0500 Respiratory rate 18 /min Deepti Enriquemond Other [facility] Other 09-27-2023 10:45-0500 SaO2% (BldA) [Mass fraction] 98 % Deepti Enriquemond Other [facility] Other 09-27-2023 10:45-0500 Systolic blood pressure 118 mm[Hg] Deepti Tidwell Other [facility] Other 12-08-2022 11:45-0500 Body height 170.18 cm Ttaiana Jarrett Other [facility] Other 12-08-2022 11:45-0500 Body mass index (BMI) [Ratio] 38.37 kg/m2 Tatiana Jarrett Other [facility] Other 12-08-2022 11:45-0500 Body temperature 98.5 [degF] Tatiana Jarrett Other [facility] Other 12-08-2022 11:45-0500 Body weight 111.13 kg Tatiana Jarrett Other [facility] Other 12-08-2022 11:45-0500 Respiratory rate 18 /min Tatiana Jarrett Other [facility] Other 12-08-2022 11:45-0500 SaO2% (BldA) [Mass fraction] 99 % Tatiana Jarrett Other [facility] Other Encounters Encounter Date Encounter Type Care Provider Facility Start: 12-03-2024 End: 12-03-2024 Office outpatient new 30 minutes Florentino Adhikari DO Work Phone: [facility] - [facility] Comment on above: Lipoma, unspecified site (Primary Dx); Chest pain, unspecified type; Class 2 obesity due to excess calories with body mass index (BMI) of 36.0 to 36.9 in adult, unspecified whether serious comorbidity present; Anxiety Start: 12-03-2024 End: 12-03-2024 ambulatory FLORENTINO ADHIKARI [facility] Start: 11-11-2024 End: 11-11-2024 ambulatory [facility] Work Phone: Start: 11-11-2024 End: 11-11-2024 Patient encounter procedure [facility] [place] Work Phone: Start: 10-02-2024 End: 10-16-2024 Telephone encounter Florentino Adhikari DO [facility] Start: 02-02-2024 End: 02-02-2024 ambulatory [facility] Work Phone: Start: 02-02-2024 End: 02-02-2024 Patient encounter procedure [facility] [place] Work Phone: Start: 09-27-2023 End: 09-27-2023 ambulatory Deepti Diann Other [facility] Other Start: 09-27-2023 Office outpatient vi sit 15 minutes Deepti Diann [facility] [place] Start: 12-08-2022 End: 12-08-2022 ambulatory Tatianablas Jarrett Other [facility] Other Start: 12-08-2022 Office outpatient vi sit 25 minutes Tatianablas Jarrett [facility] Procedures Date Procedure Procedure Detail Performing Clinician Start: 12-03-2024 Ecg routine ecg w/le ast 12 lds w/i&r Florentino Adhikari DO Work Phone: Start: 12-03-2024 Adult depression screening assessment Florentino Adhikari DO Work Phone: Plan of Treatment Date Care Activity Detail Author Start: 12-03-2025 Adult BMI Screening Adult BMI Screen ing [facility] Start: 12-03-2025 Depression Screening Depression Scre ening [facility] Start: 12-03-2025 Tobacco Screening Tobacco Screening [facility] Start: 06-05-2025 End: 06-05-2025 Patient encounter procedure 06/05/2025 8:30 AM EDT [facility] [address] [place] [address] Florentino Adhikari, DO [address] [place] [address] [facility] - [facility] Start: 12-03-2024 End: 12-03-2024 Patient encounter procedure 12/03/2024 9:30 AM EST [facility] [address] [place] [address] Florentino Adhikari, [address] [place] [address] [facility] Start: 06-17-2024 Influenza vaccination Influenza Vacc ine [facility] Start: 2009 Screening for malign ant neoplasm of cervix Pap Smear [facility] Start: 2007 DTaP,Tdap and Td Vaccines (1 - Tdap) DTaP,Tdap and Td Vaccines (1 - Tdap) [facility] Start: 2006 Adult BMI Follow Up Plan Adult BMI Follow Up Plan [facility] Start: 2006 Adult BMI Screening Adult BMI Screen ing [facility] Start: 2000 Depression Screening Depression Scre ening [facility] Start: 2000 Tobacco Screening Tobacco Screening [facility] POCT EKG POCT EKG ECG Rou stephanie Chest pain, unspecified type 12/03/2024 10:38 AM EST [facility] Work Phone: Payers Date Payer Category Payer Medicaid [facility] [id number] 2024 Unknown [id number] .[id number] 1990 Unknown [id number] Medicaid [id number] .[id number] Self-pay Self Pay [id number] Unknown Regular Auto/Liability [id number] Social History Date Type Detail Facility Start: 03-26-2019 End: 12-03-2024 Sex Assigned At [facility] Other Start: 02-02-2024 End: 12-03-2024 Tobacco smoking status NHIS Never smoked tobacco (finding) [facility] Start: 1990 Sex Assigned At Female [facility] Tobacco smoking stat [facility] Tobacco smoking consumption unknown [facility] Start: 03-26-2019 End: 12-03-2024 History of Social function [facility] Childcare [facility] Start: 1990 Sex assigned at Not on file [facility] Start: 05-20-2015 End: 11-11-2024 Sex Female (finding) [facility] Start: 12-03-2024 Tobacco use and exposure Smokeless tobacco non-user [facility] Start: 12-03-2024 Alcoholic beverage intake Current drinker of alcohol (finding) [facility] Has the electric, [employer], oil, or water [employer] threatened to shut off services in your home in past 12Mo No [facility] Do you belong to any clubs or organizations such as anabaptist groups, unions, fraternal or athletic groups, or school groups? Yes [facility] Are you now , , , , never or living with a partner? Never [facility] How often to you hav e a drink containing alcohol? Monthly or less [facility] How many standard dr inks containing alcohol do you have on a typical day? 1 or 2 [facility] How often do you hav e 6 or more drinks on 1 occasion? Never [facility] Do you feel stress - tense, restless, nervous, or anxious, or unable to sleep at night because your mind is troubled all the time - these days [OSQ] Rather much [facility] Start: 12-03-2024 Alcohol Comment socially [facility] Clinical Notes 07-24-2020 to 12-03-2024 Florentino Adhikari, DO - 12/03/2024 9:30 AM ESTTelephone Encounter - Landy Olmos - 10/02/2024 1:36 PM ESTTelephone Encounter - Florentino Adhikari, - 10/02/2024 1:36 PM EST Note Date & Type Note Facility 12-03-2024 History of Presen t illness Narrative Subjective Patient ID: Areli Fuentes is a 34 y.o. female. Areli presents as a new patient but she has a couple concerns today. She has multiple lumps on arms and legs. They are asymptomatic. They have been there years. The 1 on her left arm has been there for years. She was told what it was not that it was benign forgot what they called it. It has not really changed at all. She has got some new ones on her legs now. They seem to come and go at times. They are asymptomatic as well. 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 She said she was a alcoholic for a month and gained a lot of weight then. She has since cut back on alcohol use and only drinks about once a month and that is usually 1 mixed drink. She does drink 2 mountain Dews a day and sometimes drink a monster. She drinks it primarily for the caffeine. She also complains of intermittent chest pain. It happens on both sides. It is with exertion and nonexertional. 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 She is on her feet all day and does a lot of walking but does not do any formal exercise. She says it when she is walking a lot that she will get some chest pain that feels like a heaviness or pressure. It resolved spontaneously. It is sometimes on the right side and goes around to the back. Does not travel down her arms or up into her neck. There was no history of premature cardiac disease in her family. She smoked for about a year but stopped. She does vape. She does admit to some anxiety but does not feel that she is anxious when she has these episodes. She thinks they may be linked to her mountain dew intake. New Patient The following portions of the patient's history were reviewed and updated as appropriate: allergies, current medications, past family history, past medical history, past social history, past surgical history, problem list, and medication reconciliation was completed including current medication and post discharge medication. Review of Systems Constitutional: Positive for unexpected weight change. HENT: Negative. Eyes: Negative. Respiratory: Negative. Cardiovascular: Negative. Gastrointestinal: Negative. Endocrine: Negative. Genitourinary: Negative. Musculoskeletal: Negative. Skin: Negative. Allergic/Immunologic: Negative. Neurological: Negative. Hematological: Negative. Psychiatric/Behavioral: The patient is nervous/anxious. Objective Physical Exam Exam conducted with a branch associate present (Jose Preston MS3). Constitutional: General: She is not in acute distress. Appearance: She is obese. She is not ill-appearing. HENT: Head: Normocephalic. Eyes: Extraocular Movements: Extraocular movements intact. Conjunctiva/sclera: Conjunctivae normal. Cardiovascular: Rate and Rhythm: Normal rate and regular rhythm. Pulses: Normal pulses. Heart sounds: Normal heart sounds. No murmur heard. Pulmonary: Effort: Pulmonary effort is normal. No respiratory distress. Breath sounds: Normal breath sounds. No wheezing, rhonchi or rales. Abdominal: General: Bowel sounds are normal. There is no distension. Palpations: Abdomen is soft. There is no mass. Tenderness: There is no abdominal tenderness. There is no guarding or rebound. Hernia: No hernia is present. Musculoskeletal: Cervical back: Neck supple. Right lower leg: No edema. Left lower leg: No edema. Lymphadenopathy: Cervical: No cervical adenopathy. Upper Body: Right upper body: No axillary adenopathy. Left upper body: No axillary adenopathy. Skin: Findings: Lesion (oblong masses on left arm, right lateral thigh, left lateral thigh) present. No rash. Neurological: General: No focal deficit present. Mental Status: She is alert and oriented to person, place, and time. Psychiatric: Mood and Affect: Mood normal. Behavior: Behavior normal. Thought Content: Thought content normal. Judgment: Judgment normal. Assessment/Plan Areli was seen today for new patient. Diagnoses and all orders for this visit: Lipoma, unspecified site She has lipomas clinically. They are asymptomatic although she has some newer smaller ones on her legs. Monitor for now. Chest pain, unspecified type - POCT EKG Her EKG was essentially normal. Her chest pain is nonexertional. It is kind of all over her chest. She has no real significant risk factors for heart disease. Would need to have further testing done to rule out heart disease. We declined to pursue further testing at this time. Class 2 obesity due to excess calories with body mass index (BMI) of 36.0 to 36.9 in adult, unspecified whether serious comorbidity present She is obese. She would benefit from weight loss. We did discuss her mountain dew intake. She is primarily doing it for the caffeine. I suggested a tentative sources of caffeine or stimulants. She is getting a lot of extra calories. Recommended exercise and weight loss as well. Consider weight loss medication in the future if diet and exercise fail. Anxiety She is stressed but is not interested any medication at this time. [facility] 10-02-2024 Miscellaneous Notes Formattin g of this note might be different from the original. Looking for new pcp will you accept okay documented [facility] encounter [facility] 10-02-2024 Telephone encount er Note Looking for new pcp will you accept [facility] 10-02-2024 Telephone encount er Note okay [facility] Work Phone: 09-27-2023 Evaluation note Encounter Date Diagnosis Assessment Notes Sep, Intractable episodic headache, unspecified headache type (ICD-10 - R51.9) Drink plenty fluids, get plenty of rest. Take the Medrol Dosepak as prescribed until gone starting tomorrow. Use the fluticasone nasal spray as prescribed until your symptoms of congestion and headache improve. Go home and go to bed, take 25 mg of Benadryl when you get home. Off work today and tomorrow. Follow-up with your family physician if no improvement in 2 to 3 days. Sep, Acute sinusitis, recurrence not specified, unspecified location (ICD-10 - J01.90) [facility] Other 02-22-2023 Evaluation note* Encounter Date Diagnosis Assessment Notes Treatment Notes Treatment Clinical Notes Nov, Cough (ICD-10 - R05.9) Nov, COVID-19 (ICD-10 - U07.1) Today you tested positive for the COVID virus. This mean you need to follow all CDC quarantine guidelines found at coronavirus.[place].g ov. It is important to rest, increase fluids, and stay at home. Recommend contacting primary care provider and discussing best course of action if you have chronic health conditions. COVID POSITIVE education handout discharge instructions. given. [facility] Other 10-08-2020 Note [id number]:127[facility] Evaluation noteNo assessment information availableBarney [facility] Work Phone: Evaluation note* Diagnosis Lipoma, unspecified site- Primary Chest pain, unspecified type Class 2 obesity due to excess calories with body mass index (BMI) of 36.0 to 36.9 in adult, unspecified whether serious comorbidity present Anxiety Anxiety state, unspecified [facility] - [facility]orted* Type Description Date Surgical History Broken Collar bone Right Side [facility] Other InstructionsNot on filedocumented in this encounter [facility] filedocumented in this encounter [facility] Summary Purpose Family History Relationship Condition Age at Onset Recorded Date/T ana Not Specified Malignant neoplasm Unknown sister Diabetes mellitus Unknown Relationship Condition Age at Onset Recorded Date/T ana mother Malignant neoplasm Unknown sister Diabetes mellitus Unknown Advance Directives Advance Directive Response Recorded Date/ Time Advance Directives No November 24, 2018 7:48pm Advance Directive Response Recorded Date/ Time Advance Directives No November 24, 2018 6:48pm Chief Complaint and Reason for Visit Chief Complaint rash on back of legs and rear Chief Complaint Admit Date Cough, congestion, headache October 1:12pm Additional Source Comments INFORMATION SOURCE (unrecogn ized section and content) DATE CREATED AUTHOR 05/29/2021 [facility] DATE CREATED AUTHOR AUTHOR'S ORGANIZ ATION [facility]04/[facility] REASON FOR VISIT (unrecogniz ed section and content) Reason Comments New Patient Bumps on legs within in last year. Care Teams (unrecognized sec tion and content) Team Status: Active Member Role Status Dates Soham Negro MD Primary Care Provider Active Team Status: Inactive Member Role Status Dates Soham Negro MD Primary Care Provider Active S tart: February 02, 2024 End: February 02, 2024 Marylou Benson APRN Attending Provider Active Start: February 02, 2024 End: February 02, 2024 Team Status: Active Member Role Status Dates NON STAFF Primary Care Provider Active Team Status: Inactive Member Role Status Dates Anny Motley APRN Attending Provider Active S tart: November 11, 2024 End: November 11, 2024 NON STAFF Primary Care Provider Active Start: November 11, 2024 End: November 11, 2024 [employer] Relationship Specialty Start Date End Date Florentino Adhikari DO [address], [place] [address] PCP - General Family Medicine 12/03/24 Goals (unrecognized section and content) Goals may be documented in a n alternate section FOR RECORDS PERTAINING TO PATIENTS WHO ARE OR HAVE BEEN ENROLLED IN A CHEMICAL DEPENDENCY/SUBSTANCEABUSE PROGRAM, SOME INFORMATION MAY BE OMITTED. This clinical summary was aggregated from multiple sources. Caution should be exercised in using it in the provision of clinical care. This summary normalizes information from multiple sources, and as a consequence, information in this document may materially change the coding, format and clinical context of patient data. In addition, data may be omitted in some cases. CLINICAL DECISIONS SHOULD BE BASED ON THE PRIMARY CLINICAL RECORDS. [employer] provides no warranty or guarantee of the accuracy or completeness of information in this document.
--- NOTE | 2025-01-07 19:58 | ECG_ITS ---
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 Measurements Intervals [place] Rate: 71 P: 47 AK: 150 QRS: 3 QRSD: 108 T: 19 QT: 414 QTc: 436 Interpretive Statements 1100 Sinus rhythm 1102 Sinus arrhythmia 2420 RSR (QR) in lead V1/V2, consistent with right ventricular conduction delay 5222 Moderate voltage criteria for LVH, may be normal variant 9130 borderline ECG No previous ECG available for comparison Electronically Signed On 01-08-2025 8:24:10 EDT by GUCCI OLEA M.D.
--- NOTE | 2025-01-07 20:05 | ED_ITS ---
HPI HPI - General Adult General Chief complaint: Chest Pain Stated complaint: Chest Pain Time Seen by Provider: 01/07/25 19:52 History of Present Illness HPI narrative: 34-year-old female presents to the emergency department for chest pain. It is in the left upper part of her chest that began yesterday. It was intermittent yesterday but has been continuous all day today. There is been no injury or fever or cough and she does not complain of back pain or shortness of breath. No fever or abdominal pain or vomiting. It feels like something is sitting on her chest. She has never had heart issues and vapes but does not smoke. No history of hypertension or diabetes or family history of heart disease. Related Data Home Medications ?Medication ?Instructions ?Recorded ?Confirmed No Known Home Medications 11/02/23 01/07/25 Allergies Allergy/AdvReac Type Severity Reaction Status Date / Time No Known Drug Allergies Allergy Verified 01/07/25 20:06 Opioid HPI Opioid Management Most Recent Opioid Data: No Data to Display Review of Systems ROS Narrative A ten point review of systems is negative except as noted above. PFSH PFSH Social History Smoking status: Current every day smoker Little interest or pleasure in doing things: not at all Feeling down, depressed, or hopeless: not at all Exam Narrative Exam Narrative: Nurses note and vital signs reviewed and patient is not hypoxic. General: The patient appears well and in no apparent distress. Patient is resting comfortably on cart. Skin: Warm, dry, no pallor noted. There is no rash noted. Head: Normocephalic, atraumatic Eye: Normal conjunctiva, no drainage Ears, Nose, Mouth, and Throat: oral mucosa is moist. Nares patent. Cardiovascular: Regular Rate and Rhythm; chest wall has no crepitus bruise or rash. Respiratory: Patient is in no distress, no accessory muscle use, lungs are clear to auscultation, no wheezing, rales or rhonchi Back: non-tender GI: Soft and nontender Musculoskeletal: The patient has no evidence of calf tenderness, no pitting edema, symmetrical pulses noted bilaterally Neurological: A&O, normal speech Psychiatric: Cooperative Constitutional Vital Signs, click to edit/add: Last Vital Signs Temp 98.1 F 01/07/25 19:58 Pulse 78 01/07/25 20:20 Resp 24 H 01/07/25 20:20 BP 133/71 03/24/25 20:03 Pulse Ox 96 01/07/25 20:20 O2 Del Method Room Air 01/07/25 19:58 Course Vital Signs Vital signs: Vital Signs Pulse Rate 75 01/07/25 19:54 Respiratory Rate 28 H 01/07/25 19:54 Temperature 98.1 F 01/07/25 19:58 Pulse Rate 78 01/07/25 20:20 Respiratory Rate 24 H 01/07/25 20:20 Blood Pressure 133/71 01/07/25 20:03 Pulse Oximetry 96 01/07/25 20:20 Oxygen Delivery Method Room Air 01/07/25 19:58 Medical Decision Making MDM Narrative Medical decision making narrative: Her workup here is negative. Troponin and D-dimer are negative and she has had the pain for more than 24 hours. At this point I do not suspect heart disease. I have no clinical suspicion of pulmonary embolism. Heart score is 0. She will be discharged home and will follow-up with her PCP. Treatment diagnosis and follow-up were discussed with the patient. I have no clinical suspicion of pulmonary embolism. Differential Diagnosis Differential Diagnosis: Myocardial infarction, pneumothorax, pneumonia, chest wall pain, PE Lab Data Lab results reviewed: Yes I reviewed the patient's lab results Labs: Lab Results 01/07/25 Range/Units 20:14 WBC 5.6 (4.0-11.0) 10^3/uL RBC 4.48 (4.20-5.40) 10^6/uL Hgb 13.1 (12.0-16.0) g/dL Hct 39.1 (36.0-48.0) % MCV 87.3 (81.0-99.0) fL MCH 29.2 (26.7-34.0) pg MCHC 33.5 (29.9-35.2) g/dL RDW 12.4 (11.0-15.0) % Plt Count 247 (150-450) 10^3/uL MPV 11.0 (9.5-13.5) fL Neut % (Auto) 55.1 (43.0-75.0) % Lymph % (Auto) 33.3 (20.5-60.0) % Burke % (Auto) 7.0 (1.7-12.0) % Eos % (Auto) 3.9 (0.9-7.0) % Baso % (Auto) 0.5 (0.2-2.0) % Neut # (Auto) 3.1 (1.4-6.5) 10^3/uL Lymph # (Auto) 1.9 (1.2-3.8) 10^3/uL Burke # (Auto) 0.4 (0.3-0.8) 10^3/uL Eos # (Auto) 0.2 (0.0-0.7) 10^3/uL Baso # (Auto) 0.0 (0.0-0.1) 10^3/uL Abs Immat Gran (auto) 0.01 (0.00-0.03) 10^3/uL Imm/Tot Granulo (auto) 0.2 (0.0-0.5) % D-Dimer <0.19 (<=0.59) mg/L FEU Sodium 141 (136-145) mmol/L Potassium 3.2 L (3.5-5.1) mmol/L Chloride 106 (98-107) mmol/L Carbon Dioxide 25.7 (21.0-32.0) mmol/L Anion Gap 12.5 BUN 14.0 (7.0-18.0) mg/dL Creatinine 0.83 (0.55-1.02) mg/dL Est GFR ( Amer) >60 (>=60 mL/min/1.73m^2) Est GFR (Non-Af Amer) >60 (>=60 mL/min/1.73m^2) BUN/Creatinine Ratio 16.9 Glucose 99 (74-106) mg/dL Calcium 8.8 (8.5-10.1) mg/dL Troponin I High Sens <4.0 L (4.0-51.3) pg/mL Imaging Data Chest x-ray: My impression: No acute findings ECG Data Attestation: I personally reviewed and interpreted this ECG as follows: (EKG on my interpretation shows normal sinus rhythm with a rate of 71 and no acute change.) Discharge Plan Discharge Chief Complaint: Chest Pain Clinical Impression: Chest pain Patient Disposition: Home, Self-Care Time of Disposition Decision: 21:17 Condition: Good Mode of Transportation: Private Vehicle Prescriptions / Home Meds: No Action No Known Home Medications Print Language: [place] Citizen Instructions: Chest Pain (ED) Additional Instructions: Follow-up with PCP Referrals: LULÚ ODEN [Primary Care Provider] - 1 week
[2025-01-07 20:21] LABS: Basophils Percent Auto 0.5 % (0.2-2.0); Eosinophils Absolute Auto 0.2 10^3/uL (0.0-0.7); Eosinophils Percent Auto 3.9 % (0.9-7.0); Hematocrit 39.1 % (36.0-48.0); Hemoglobin 13.1 g/dL (12.0-16.0); Immature Granulocytes Abs Auto 0.01 10^3/uL (0.00-0.03); Immature Granulocytes Pct Auto 0.2 % (0.0-0.5); Lymphocytes Absolute Auto 1.9 10^3/uL (1.2-3.8); Lymphocytes Percent Auto 33.3 % (20.5-60.0); Mean Corpuscular HGB Conc 33.5 g/dL (29.9-35.2); Mean Corpuscular Hemoglobin 29.2 pg (26.7-34.0); Mean Corpuscular Volume 87.3 fL (81.0-99.0); Monocytes Absolute Auto 0.4 10^3/uL (0.3-0.8); Neutrophils Absolute Auto 3.1 10^3/uL (1.4-6.5); Neutrophils Percent Auto 55.1 % (43.0-75.0); Platelet Count 247 10^3/uL (150-450); Red Blood Count 4.48 10^6/uL (4.20-5.40); Red Cell Distribution Width 12.4 % (11.0-15.0); White Blood Count 5.6 10^3/uL (4.0-11.0)
[2025-01-07 20:38] LABS: Anion Gap 12.5; BUN Creatinine Ratio 16.9; Calcium 8.8 mg/dL (8.5-10.1); Carbon Dioxide 25.7 mmol/L (21.0-32.0); Chloride 106 mmol/L (98-107); Estimated GFR (African America >60 (>=60 mL/min/1.73m^2); Estimated GFR (Non-African Ame >60 (>=60 mL/min/1.73m^2); Glucose 99 mg/dL (74-106); Potassium 3.2 mmol/L (3.5-5.1); Sodium 141 mmol/L (136-145); Troponin I High Sensitivity <4.0 pg/mL (4.0-51.3)
[2025-01-07 20:45] LABS: D Dimer <0.19 mg/L FEU (<=0.59)
== END 2025-01-07 21:32 | disposition home or self-care (01) ==
PROVIDERS: Emergency Provider Emergency Medicine; PCP Family Medicine
DX: R07.9 Chest pain, unspecified (principal); F17.290 Nicotine dependence, other tobacco product, uncomplicated
CPT/HCPCS: 36415; 71045; 80048; 84484; 85025; 85378; 93005; 99285